=== PATIENT | female | born 1975 | race Caucasian/White ===

== ENCOUNTER 2018-07-22 11:16 | Emergency (ER) | payer MEDICAID, SELFPAY ==
[2018-07-22] VITALS (10 sets, daily range): BP systolic 100–138; BP diastolic 48–78; PULSE 71–98; RESP 16–18; TEMP 37.1; O2SAT 96–98; BMI 29.5
--- NOTE | 2018-07-22 11:30 | RAD_ITS ---
STUDY: X-RAY CHEST REASON FOR EXAM: Female, 43 years old. Overdose, chest pain TECHNIQUE: Portable chest upright COMPARISON: None. FINDINGS: Lungs are clear, somewhat hyperlucent. Correlate any smoking history that may indicate the presence of COPD. Normal cardiomediastinal silhouette, shandra and pleural margins. No acute osseous or upper abdominal process. RAD/Chest 1 View (Portable) IMPRESSION: No acute cardiopulmonary process. Electronically Signed: Reynold Blackman MD at 15:38 EST Tel , Service support ,
--- NOTE | 2018-07-22 11:30 | EKG12_ITS ---
Test Reason : MENTAL HEALTH Blood Pressure : / mmHG Vent. Rate : 084 BPM Atrial Rate : 084 BPM P-R Int : 152 ms QRS Dur : 086 ms QT Int : 376 ms P-R-T Axes : 047 020 049 degrees QTc Int : 444 ms Normal sinus rhythm Normal ECG Confirmed by NANY CORREA, DEANNA ([id number]), technical writer and editor MONICA THURMAN ([id number]) on 07/28/2018 11:13:43 AM Referred By: CRIS Confirmed By:DEANNA AYON MD
--- NOTE | 2018-07-22 11:32 | ED.VISSUMM ---
- ER Visit Summary Date of Service: 07/22/18 Chief Complaint: Intentional overdose History of Present Illness: The patient is a 43 F who presents for intentional overdose on hydroxyzine. Patient took approximately 36 tablets of 25 mg each. She did it with the intention of killing herself. She took the pills in front of her boyfriend and states she would have taken all of her pills, but he would not let her. She denies any coingestions with alcohol or any other drugs. She denies tobacco use. She is complaining of chest discomfort, headache. She states she has depression, anxiety, PTSD and suicidal thoughts and intention. She has history of prior suicidal attempts. Patient also has history of Gilbert's syndrome. Physical Examination: Vital signs: afebrile, hemodynamically stable, no hypoxia on room air General: well nourished, well developed, in no distress Skin: warm, dry, no rash, no pallor HEENT: normocephalic and atraumatic; PERRL, EOMI, moist mucous membranes Cardiovascular: regular rate and rhythm without murmurs, no peripheral edema, 2+ pulses all distal extremities Respiratory: No increased work of breathing, lungs are clear to auscultation bilaterally, no rales, rhonchi or wheezing Abdominal: Abdomen is soft, nontender with normoactive bowel sounds, no guarding or rebound, no masses MSK: Moves all extremities, no deformities, normal strength Neuro: Awake and alert, oriented ?4. No facial droop, sensation and motor function intact and symmetric Psych: Depressed affect, positive suicidal ideation Test Results: Abnormal Lab Results 07/22/18 07/22/18 07/22/18 11:40 11:40 11:40 WBC 8.4 RBC 4.68 Hgb 13.3 Hct 40.3 MCV 86.1 MCH 28.4 MCHC 33.0 RDW 13.1 RDW Differential 40.4 Plt Count 385 MPV 8.2 Immature Gran % (Auto) 0.200 Neut % (Auto) 64.5 Lymph % (Auto) 25.7 Cass % (Auto) 6.7 Eos % (Auto) 2.2 Baso % (Auto) 0.7 Absolute Neuts (auto) 5.4 Absolute Lymphs (auto) 2.15 Total Counted Not Reportable Sodium 141 Potassium 3.8 Chloride 106 Carbon Dioxide 27.0 Anion Gap 8 BUN 11 Creatinine 0.76 Estim Creat Clear Calc 94.30 Est GFR (MDRD) Af Amer 106 Est GFR (MDRD) Non-Af 88 BUN/Creatinine Ratio 14.6 Glucose 100 Calcium 8.3 L Total Bilirubin 1.30 H AST 10 L ALT 20 Alkaline Phosphatase 63 Total Protein 7.8 Albumin 4.0 Globulin 3.8 Albumin/Globulin Ratio 1.1 Serum , Qual Urine Color Urine Clarity Urine pH Ur Specific [place] Urine Protein Urine Glucose (UA) Urine Ketones Urine Occult Blood Urine Nitrite Urine Bilirubin Urine Urobilinogen Ur Leukocyte Esterase Urine RBC Urine WBC Ur Squamous Epith Cells Urine Bacteria Urine Mucus Salicylates < 1.7 L Urine Opiates Screen Urine Methadone Screen Acetaminophen < 2.0 L Ur Barbiturates Screen Ur Phencyclidine Scrn Ur Amphetamines Screen U Methamphetamin-MDMA U Benzodiazepines Scrn Urine Cocaine Screen U Cannabinoids Screen Ur Drug Screen Comment Ethyl Alcohol 6.0 07/22/18 07/22/18 07/22/18 11:40 12:25 12:25 WBC RBC Hgb Hct MCV MCH MCHC RDW RDW Differential Plt Count MPV Immature Gran % (Auto) Neut % (Auto) Lymph % (Auto) Cass % (Auto) Eos % (Auto) Baso % (Auto) Absolute Neuts (auto) Absolute Lymphs (auto) Total Counted Sodium Potassium Chloride Carbon Dioxide Anion Gap BUN Creatinine Estim Creat Clear Calc Est GFR (MDRD) Af Amer Est GFR (MDRD) Non-Af BUN/Creatinine Ratio Glucose Calcium Total Bilirubin AST ALT Alkaline Phosphatase Total Protein Albumin Globulin Albumin/Globulin Ratio Serum , Qual NEGATIVE Urine Color Yellow Urine Clarity Clear Urine pH 6.5 Ur Specific [place] 1.010 Urine Protein Negative Urine Glucose (UA) Normal Urine Ketones Negative Urine Occult Blood 10 H Urine Nitrite Negative Urine Bilirubin Negative Urine Urobilinogen Normal Ur Leukocyte Esterase Negative Urine RBC 0 SEEN Urine WBC 0 SEEN Ur Squamous Epith Cells 0-5 SEEN Urine Bacteria RARE Urine Mucus 0 SEEN Salicylates Urine Opiates Screen NEGATIVE Urine Methadone Screen NEGATIVE Acetaminophen Ur Barbiturates Screen NEGATIVE Ur Phencyclidine Scrn NEGATIVE Ur Amphetamines Screen NEGATIVE U Methamphetamin-MDMA NEGATIVE U Benzodiazepines Scrn NEGATIVE Urine Cocaine Screen NEGATIVE U Cannabinoids Screen NEGATIVE Ur Drug Screen Comment Ethyl Alcohol Medications Given Discontinued Medications Charcoal () 50 gm PO X1 ONE Stop: 07/22/18 11:33 Last Admin: 07/22/18 11:48 Dose: 50 gm Emergency Department Course and Treatment: Ingestion of the hydroxyzine was 1 hour ago. Thus patient was given activated charcoal and tolerated it well with only mild nausea but no vomiting. Patient had no findings on physical exam concerning for anticholinergic syndrome. Patient remained hemodynamically stable and afebrile. Skin exam remained warm and dry. She was reevaluated at 1500 and was sleeping comfortably, heart rate normal, pupils round and equal, not dilated, skin warm and dry but not erythematous or hot. Patient had a negative tox screen, negative salicylates and acetaminophen, negative alcohol. No derangements on her lab work. negative. Patient was observed for 6 hours. She was discussed with poison control, who agreed 6 hours of observation without development of any anticholinergic syndrome is appropriate. Patient slept comfortably during this time and had no respiratory depression or concern for airway compromise. She remained hemodynamically stable with no symptoms. Patient was medically cleared for evaluation by crisis intervention services. Because this was an intentional overdose with the intent of killing herself, patient will require admission in an inpatient psychiatric facility for further treatment of her suicide attempt. Final disposition is pending placement by the crisis counselor. Treatment Plan: [] Disposition: [] Impression: Intentional overdose of hydroxyzine, suicide attempt This note was generated with [employer] dictation software. It may contain incorrect words, spelling, and punctuation that were not noted in review of the chart prior to signing ED Disposition - Plan for ED Patient: Referrals: Care Physician,No Primary [Primary Care Provider] -
--- NOTE | 2018-07-22 11:35 | NURSING ---
NO OLD EKGS
[2018-07-22] MEDS: Activated Charcoal 50 GM/240 ML BOT PO (11:48)
[2018-07-22 12:01] LABS: Absolute Lymphocyte Count 2.15 X10^3/ul (0.83-4.51); Absolute Neutrophil Count 5.4 X10^3/uL (2.0-7.7); Basophil# 0.06 X10^3/uL; Basophil% 0.7 % (0-1); Eosinophil# 0.18 X10^3/uL; Eosinophils% 2.2 % (0-5); Hematocrit 40.3 % (37-47); Hemoglobin 13.3 g/dl (12.0-15.0); Lymphocyte # 2.15 X10^3/ul (4.0); Lymphocyte % 25.7 % (19-41); Mean Corpuscular Hgb 28.4 pg (27.0-32.0); Mean Corpuscular Volume 86.1 fL (81-99); Mean Platelet Vol. 8.2 fl (6.2-12.0); Monocyte# 0.56 X10^3/uL; Monocyte% 6.7 % (0-10); Neutrophil # 5.39 X10^3/uL (2.7-7.7); Neutrophil % 64.5 % (47-70); Platelet Count 385 K/mm3 (150-450); RBC Distribution Width CV 13.1 % (11.6-14.6); RBC Distribution Width SD 40.4 fl (35.1-43.9); Red Blood Count 4.68 M/mm3 (4.2-5.4); White Blood Count 8.4 K/mm3 (4.4-11.0)
[2018-07-22 12:03] LABS: POSITIVE COUNT NO; POSITIVE DIFFERENTIAL NO; POSITIVE MORPHOLOGY NO
[2018-07-22 12:11] LABS: ALB/GLOB Ratio 1.1 RATIO (0.9-2.4); AST(SGOT) 10 U/L (15-37); Alanine Aminotransfer ALT/SGPT 20 U/L (13-56); Alkaline Phosphatase 63 U/L (45-117); BUN 11 mg/dL (7-18); BUN/Creat Ratio 14.6 RATIO (10-20); Calcium,Total 8.3 mg/dL (8.5-10.1); Chloride 106 mmol/L (98-107); Creatinine, Serum 0.76 mg/dL (0.55-1.02); EST Glomerular Filtration Rate 88 mL/min (>60); Est Glom Filt Rate - Afr Amer 106 mL/min (>60); Globulin 3.8 g/dL (2.2-4.2); Glucose 100 mg/dL (74-106); Potassium 3.8 mmol/L (3.5-5.1); Protein, Total 7.8 g/dL (6.4-8.2); Sodium Level 141 mmol/L (136-145)
[2018-07-22 12:12] LABS: Anion Gap 8 (5-15)
[2018-07-22 12:32] LABS: Mucous, Urine 0 SEEN /hpf (<or=2+); Red Blood Cells-Urine 0 SEEN /hpf (0-5); White Blood Cells 0 SEEN /hpf (0-5)
[2018-07-22 12:40] LABS: Color, Urine Yellow (Yellow); Glucose, Dipstick Normal (Normal); Ketone-Dipstick Negative (Negative); Leukocyte Esterase-Dipstick Negative /ul (Negative); Nitrite-Dipstick Negative (Negative); Occult Blood-Urine 10 /ul (Negative); Protein-Dipstick Negative (Negative); Urine Bilirubin Dipstick Negative (Negative); Urine Clarity Clear (Clear); Urine Urobilinogen Normal (Normal); Urine pH 6.5 (5.0 - 8.0)
[2018-07-22 12:43] LABS: Pregnancy, Serum, hCG Quali. NEGATIVE Negative (0-9 Nonpreg)
[2018-07-22 12:52] LABS: Bacteria RARE /hpf (None Seen); Squamous Epithelial Cells - UA 0-5 SEEN /hpf (5-10)
[2018-07-22 13:02] LABS: Amphetamine Urine VISTA NEGATIVE (<1000 ng/mL); Barbiturate Urine VISTA NEGATIVE (< 200 ng/mL); Benzodiazepine Urine VISTA NEGATIVE (< 200 ng/mL); Cocaine Urine VISTA NEGATIVE (< 300 ng/mL); Ecstacy Urine VISTA NEGATIVE (< 500 ng/mL); Methadone Urine VISTA NEGATIVE (< 300 ng/mL); PCP Urine VISTA NEGATIVE (< 25 ng/mL); THC Urine VISTA NEGATIVE (< 50 ng/mL); Vista UDS pH Range 5
[2018-07-22 13:19] LABS: Acetaminophen (Tylenol) Level < 2.0 ug/mL (10.0-30.0); Salicylate < 1.7 mg/dL (2.8-20.0)
--- NOTE | 2018-07-22 13:34 | CM.ED ---
Social Work Note Discussed case with physician and pt will await medical clearance and then crisis evaluation for psychiatric hospitalization due to intentional overdose. Ayala Pickett, CHIEF OPERATING ENGINEER, CHELSIE
--- NOTE | 2018-07-22 18:13 | NURSING ---
ACCEPTED AT [facility]
--- NOTE | 2018-07-22 18:32 | ED.RN ---
darrick quiroz called report to francine at [facility].
--- NOTE | 2018-07-22 20:21 | EKG12_ITS ---
Test Reason : CP Blood Pressure : / mmHG Vent. Rate : 084 BPM Atrial Rate : 084 BPM P-R Int : 162 ms QRS Dur : 084 ms QT Int : 378 ms P-R-T Axes : 053 057 057 degrees QTc Int : 446 ms Normal sinus rhythm Normal ECG Confirmed by NANY CORREA, DEANNA ([id number]), editorial specialist MONICA THURMAN ([id number]) on 07/28/2018 11:38:02 AM Referred By: BRAXTON RAMIRES Confirmed By:DEANNA AYON MD
--- NOTE | 2018-07-22 21:44 | ED.RN ---
[facility] updated on pt not leaving till 0530 08/20/18
[2018-07-23] VITALS (8 sets, daily range): BP systolic 105; BP diastolic 49; PULSE 89; RESP 14–18; O2SAT 100
== END 2018-07-23 08:37 ==
PROVIDERS: Emergency Provider Emergency Medicine
DX: T43.592A Poisoning by other antipsychotics and neuroleptics, intentional self-harm, initial encounter (principal); R51 Headache; R07.9 Chest pain, unspecified; F32.9 Major depressive disorder, single episode, unspecified; F41.9 Anxiety disorder, unspecified; F43.10 Post-traumatic stress disorder, unspecified; E80.4 Gilbert syndrome; Z79.899 Other long term (current) drug therapy
CPT/HCPCS: 36415; 71045; 80053; 80307; 80320; 80329; 81001; 84703; 85025; 93005; 99284; G0480